=== PATIENT | male | born 1940 | race Caucasian/White ===

== ENCOUNTER → 2017-04-12 | Outpatient (CLI) | payer MEDICARE, OTHER ==
[~2017-04-12] MED LIST: ASPIR 8181 MG; FOSAMAX 70 MG T70 MG; HYTRIN 5 M5 MG/1 CAP; POTASSIUM20; PREDNISONE 5 MG5 M1; SIMVASTATIN40 MG
[2017-04-12 09:59] LABS: CREATININE 1.1 mg/dL (0.6-1.3)
== END ==
LOC: M.LAB 09:32 → M.CT 11:00
PROVIDERS: Psychiatry & Neurology Psychiatry
DX: K86.2 Cyst of pancreas (principal); K76.0 Fatty (change of) liver, not elsewhere classified; J98.11 Atelectasis; N20.0 Calculus of kidney; N28.1 Cyst of kidney, acquired; K44.9 Diaphragmatic hernia without obstruction or gangrene; K57.30 Diverticulosis of large intestine without perforation or abscess without bleeding

== ENCOUNTER → 2019-08-29 | Outpatient (CLI) | payer MEDICARE, OTHER ==
[2019-08-29 10:12] LABS: CREATININE 1.2 mg/dL (0.6-1.3)
== END ==
LOC: M.LAB 09:48 → M.CT 11:00
PROVIDERS: ATTEND Surgery
DX: K76.0 Fatty (change of) liver, not elsewhere classified (principal); K57.30 Diverticulosis of large intestine without perforation or abscess without bleeding; J90 Pleural effusion, not elsewhere classified; N28.1 Cyst of kidney, acquired; N20.0 Calculus of kidney; I70.0 Atherosclerosis of aorta